=== PATIENT | male | born 1980 | race African-American/Black ===

== ENCOUNTER 2018-08-26 20:17 | Emergency (ER) | payer SELFPAY ==
[~2018-08-26] VITALS: Ht 188 cm; Wt 102.1 kg
--- NOTE | 2018-08-26 20:22 | NUR ---
ED Nurse Note: Patient hear with complaints of sudden feeling of dizziness while at rest. Patient has history of heart attack X2.
--- NOTE | 2018-08-26 20:25 | NUR ---
ED Nurse Note: Darell conducted neuro check, patient was assymptomatic. Systolic bp elevated.
--- NOTE | 2018-08-26 20:49 | NUR ---
ED Nurse Note: Patient exhibited signs of change in speech pattern. ERMD informed CODE stroke called.
[2018-08-26 20:58] LABS: BASOPHILS % (AUTO) 0.8 % (0.0-2.0); EOSINOPHILS % (AUTO) 4.2 % (0.0-3.0); HEMATOCRIT 45.7 % (42.0-52.0); LYMPHOCYTES % (AUTO) 31.5 % (20.0-45.0); MEAN CORPUSCULAR VOLUME 89 FL (80-99); MONOCYTES % (AUTO) 10.1 % (1.0-10.0); NEUTROPHILS % (AUTO) 53.4 % (45.0-75.0); PLATELET COUNT 275 K/UL (150-450); RED BLOOD COUNT 5.14 M/UL (4.70-6.10); RED CELL DISTRIBUTION WIDTH 11.1 % (11.6-14.8); WHITE BLOOD COUNT 7.5 K/UL (4.8-10.8)
[2018-08-26 20:59] VITALS: BP 176/107
[2018-08-26 21:05] LABS: ANION GAP 9 mmol/L (5-15); BLOOD UREA NITROGEN 19 mg/dL (7-18); CALCIUM 8.8 MG/DL (8.5-10.1); CARBON DIOXIDE 27 MMOL/L (21-32); CHLORIDE 105 MMOL/L (98-107); CREATININE 1.3 MG/DL (0.55-1.30); POTASSIUM 3.6 MMOL/L (3.5-5.1); SODIUM 141 MMOL/L (136-145)
--- NOTE | 2018-08-26 21:06 | NUR ---
ED Nurse Note: Patient back from CT.
[2018-08-26 21:09] VITALS: BP 151/90
[2018-08-26 21:10] LABS: ALANINE AMINOTRANSFERASE 32 U/L (12-78); ALBUMIN 4.2 G/DL (3.4-5.0); ALBUMIN/GLOBULIN RATIO 1.2 (1.0-2.7); ALKALINE PHOSPHATASE 85 U/L (46-116); ASPARTATE AMINO TRANSFERASE 19 U/L (15-37); BILIRUBIN,TOTAL 0.3 MG/DL (0.2-1.0); CHOLESTEROL 206 MG/DL (< 200); HDL CHOLESTEROL 29 MG/DL (40-60); TRIGLYCERIDES 324 MG/DL (30-150)
[2018-08-26 22:07] VITALS: BP 150/78
[2018-08-26] MEDS ORDERED: NKM (22:24)
--- NOTE | 2018-08-26 22:26 | Emergency Room Report ---
History of Present Illness General Chief Complaint: General Complaint Source: Patient Present Illness HPI 38-year-old male presents ED for evaluation. States that around 8 PM tonight he felt an episode of dizziness and numbness and weakness of his left hand. States episode lasted for approximately 1 minute then resolved. Denies any symptoms at this time. Denies chest pain or shortness of breath. Denies headache or dizziness. Notes history of HI at age of 33 with angioplasty. Is currently taking baby aspirin occasionally. Denies alcohol or drug use. No other aggravating relieving factors. Denies any other associated symptoms Allergies: Uncoded Allergies: CT SCAN DYE (Adverse Reaction, Unknown, 08/26/18) Patient History Past Medical History: HTN, HI Past Surgical History: none Pertinent Family History: none Social History: Denies: smoking, alcohol use, drug use Immunizations: UTD Reviewed Nursing Documentation: PMH: Agreed; PSxH: Agreed Nursing Documentation-PMH Past Medical History: No History, Except For Review of Systems All Other Systems: negative except mentioned in HPI Physical Exam Vital Signs Date Time Temp Pulse Resp B/P (MAP) Pulse Ox O2 Delivery O2 Flow Rate FiO2 08/26/18 20:21 98.4 71 18 93 Room Air 08/26/18 20:59 176/107 Sp02 EP Interpretation: reviewed, normal General Appearance: no apparent distress, alert, GCS 15, non-toxic Head: normocephalic, atraumatic Eyes: bilateral eye normal inspection, bilateral eye PERRL ENT: hearing grossly normal, normal pharynx, no angioedema, normal voice Neck: full range of motion, supple/symm/no masses Respiratory: chest non-tender, lungs clear, normal breath sounds, speaking full sentences Cardiovascular #1: regular rate, rhythm, no edema Cardiovascular #2: 2+ carotid (R), 2+ carotid (L), 2+ radial (R), 2+ radial (L) , 2+ dorsalis pedis (R), 2+ dorsalis pedis (L) Gastrointestinal: normal bowel sounds, non tender, soft, non-distended, no guarding, no rebound Rectal: deferred Genitourinary: normal inspection, no CVA tenderness Musculoskeletal: back normal, gait/station normal, normal range of motion, non- tender Neurologic: alert, oriented x3, responsive, talent acquisition assistant III-XII nml as tested, motor strength/tone normal, sensory intact, cerebellar normal, normal gait, speech normal Psychiatric: judgement/insight normal, memory normal, mood/affect normal, no suicidal/homicidal ideation Reflexes: 3+ bicep (R), 3+ bicep (L), 3+ tricep (R), 3+ tricep (L), 3+ knee (R) , 3+ knee (L) Skin: normal color, no rash, warm/dry, well hydrated Lymphatic: no adenopathy Procedures Critical Care Time Critical Care Time i. I feel this is a highly complex case requiring extensive working including EKG/Rhythm strip, Xray/CT/US, Blood/urine lab work, repeat exams while in ED, and administration of strong opiates/narcotics for pain control, admission to hospital or close patient follow up. Total time: 60 min bedside evaluation and treatment excludes procedures (EKG). Reason for critical care: CVA Possible complications: hypotension, hypertension, HI, shock, arrhythmias, metabolic acidosis, end organ damage, respiratory failure. Interventions: Labs, EKG, CT head, consultation with neurology, aspirin Course: Patient presenting with dizziness numbness of the left hand. Resolved upon arrival. Patient then developed dysarthria in ED. Stroke CT performed which was negative. Dysarthria last for about 15 minutes. Stroke scale of 1. Given that patient is within window with evolving symptoms patient will be transferred to stroke team at [facility]. Given aspirin. Consultations: nursing staff, EMS, family Performed by: Dr Valdovinos Tolerated well condition = critical j. because of unstable vital signs this patient had a condition that could potentially threaten life or limb. I feel this is a critical patient who required my full attention while patient was considered critical. Total Critical Care Time excluding procedures was greater than 35 minutes Medical Decision Making Diagnostic Impression: Primary Impression: CVA (cerebral vascular accident) Qualified Codes: I63.9 - Cerebral infarction, unspecified ER Course Hospital Course 38-year-old male presents to ED with dizziness and weakness of left hand. Resolved upon arrival Differential diagnoses include: HI/unstable angina, SVT/Vtach/AFib, CVA/TIA Clinical course Patient placed on stretcher. on cardiac rn. After initial history and physical I ordered labs, EKG, chest x-ray, and CT head Prior to CT patient developed dysarthria in ED. NIHSS of 1. labs reviewed- electrolytes ok, troponins negative, no leukocytosis, Hb/Hct stable EKG - NSR, no acute ischemic changes interpreted by me CT brain - no acute process noted Dysarthria has since resolved. Lasted about 15 minutes. Is currently asymptomatic. Given that patient is within window with evolving stroke symptoms I believe patient would benefit from transfer to stroke center. Cannot perform CTA as patient has IV contrast allergy. Patient will be transferred to stroke team at [facility] Given aspirin in ED I. I feel this is a highly complex case requiring extensive working including EKG/Rhythm strip, Xray/CT/US, Blood/urine lab work, repeat exams while in ED, and administration of strong opiates/narcotics for pain control, admission to hospital or close patient follow up. Diagnosis - CVA transferred in critical condition Labs Test 08/26/18 20:45 White Blood Count 7.5 K/UL (4.8-10.8) Red Blood Count 5.14 M/UL (4.70-6.10) Hemoglobin 16.0 G/DL (14.2-18.0) Hematocrit 45.7 % (42.0-52.0) Mean Corpuscular Volume 89 FL (80-99) Mean Corpuscular Hemoglobin 31.2 PG (27.0-31.0) Mean Corpuscular Hemoglobin Concent 35.0 G/DL (32.0-36.0) Red Cell Distribution Width 11.1 % (11.6-14.8) Platelet Count 275 K/UL (150-450) Mean Platelet Volume 6.7 FL (6.5-10.1) Neutrophils (%) (Auto) 53.4 % (45.0-75.0) Lymphocytes (%) (Auto) 31.5 % (20.0-45.0) Monocytes (%) (Auto) 10.1 % (1.0-10.0) Eosinophils (%) (Auto) 4.2 % (0.0-3.0) Basophils (%) (Auto) 0.8 % (0.0-2.0) Prothrombin Time 10.4 SEC (9.30-11.50) Prothromb Time International Ratio 1.0 (0.9-1.1) Activated Partial Thromboplast Time 30 SEC (23-33) Sodium Level 141 MMOL/L (136-145) Potassium Level 3.6 MMOL/L (3.5-5.1) Chloride Level 105 MMOL/L (98-107) Carbon Dioxide Level 27 MMOL/L (21-32) Anion Gap 9 mmol/L (5-15) Blood Urea Nitrogen 19 mg/dL (7-18) Creatinine 1.3 MG/DL (0.55-1.30) Estimat Glomerular Filtration Rate > 60 mL/min (>60) Glucose Level 116 MG/DL (74-106) Calcium Level 8.8 MG/DL (8.5-10.1) Total Bilirubin 0.3 MG/DL (0.2-1.0) Aspartate Amino Transf (AST/SGOT) 19 U/L (15-37) Alanine Aminotransferase (ALT/SGPT) 32 U/L (12-78) Alkaline Phosphatase 85 U/L (46-116) Troponin I 0.000 ng/mL (0.000-0.056) Total Protein 7.8 G/DL (6.4-8.2) Albumin 4.2 G/DL (3.4-5.0) Globulin 3.6 g/dL Albumin/Globulin Ratio 1.2 (1.0-2.7) Triglycerides Level 324 MG/DL (30-150) Cholesterol Level 206 MG/DL (< 200) LDL Cholesterol 141 mg/dL (<100) HDL Cholesterol 29 MG/DL (40-60) Cholesterol/HDL Ratio 7.1 (3.3-4.4) EKG Diagnostic Results Rate: normal Rhythm: NSR ST Segments: no acute changes ASA given to the pt in ED: No Rhythm Strip Diag. Results EP Interpretation: yes Rhythm: NSR, no PVC's, no ectopy CT/MRI/US Diagnostic Results CT/MRI/US Diagnostic Results : Imaging Test Ordered: CT Head Impression no acute process Last Vital Signs Date Time Temp Pulse Resp B/P (MAP) Pulse Ox O2 Delivery O2 Flow Rate FiO2 08/26/18 22:07 98.4 64 21 150/78 100 Room Air 64 Status: improved Disposition: XFER SHT-TRM HOSP Condition: Critical Referrals: NON PHYSICIAN (PCP) Payam Valdovinos MD August 26, 2018 22:26
[2018-08-26 23:07] VITALS: BP 150/78
--- NOTE | 2018-08-26 23:07 | NUR ---
ED Nurse Note: Patient cleared for transfer to [facility]. 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 Report called in to Kaylah PLUNKETT prior to transport. Report given to ALS regrinder and ALS nurse. Patient departed with all belongings.
--- NOTE | 2018-08-27 10:37 | Diagnostic Imaging Report ---
Indication: Dysarthria. Acute CVA Technique: Contiguous 5 mm thick transaxial imaging of the head obtained in a Siemens Sensation [address] scanner. Soft tissue and bone windows generated. Automatic Exposure Control was utilized. Total Dose length Product (DLP): 1513.[address] Dose Index Volume (CTDIvol): 70.38 mGy Comparison: none Findings: The size and configuration of the cortical sulci, basal cisterns, and ventricles are within normal limits for age. There is no mass effect, midline shift, or edema identified. There is no evidence of acute hemorrhage or abnormal intra-axial or extra-axial fluid collections. The bones and soft tissues are unremarkable. Impression: No mass effect, edema or acute bleed. [facility] has communicated the preliminary results to the Emergency Department. Their findings are largely concordant with this report. The CT scanner at [facility] is accredited by the [employer] and the scans are performed using dose optimization techniques as appropriate to a performed exam including Automatic Exposure control.
== END 2018-08-26 23:07 | disposition short-term general hospital (02) ==
LOC: EMR 20:57
DX: I63.9 Cerebral infarction, unspecified (principal); I10 Essential (primary) hypertension; I25.2 Old myocardial infarction; Z79.82 Long term (current) use of aspirin
CPT/HCPCS: 36415; 70450; 80053; 80061; 82962; 84484; 85025; 85610; 85730; 93005; 99291